=== PATIENT | female | born 1940 | race Caucasian/White ===

== ENCOUNTER 2017-06-24 17:40 | Emergency (ER) | payer MEDICARE, BC ==
--- NOTE | 2017-06-24 18:10 | ED Physician Documentation ---
Allergy Symptoms - HISTORIAN Historian: patient, child - HPI Stated Complaint: rash and weight gain Chief Complaint: Allergic Reaction Onset: days ago (4) Duration: continues in ED Associated Symptoms: skin rash, facial, itching, trunk, extremities, diffuse hives Swelling: feet Shortness of Breath: mild (she has COPD) Trouble Swallowing/ Speaking: none Identified Cause: yes When Did Symptoms Start: 06/20/17 Context: Food Exposure: none Where: home Context: Medication Exposure: antibiotic - ROS EYES/ENT: none CVS/RESP: shortness of breath. denies: cough GI/: denies: abdominal pain, vomiting CONST: recent illness (she was treated in ER for COPD ) MS/SKIN/LYMPH: other (rash) NEURO/PSYCH: none - PAST HX Prior Allergic Reaction: none Medical History: other (COPD ) Immunizations: referred to PCP - SOCIAL HX Smoking History: quit greater than 1 year Alcohol Use: none Drug Use: none - FAMILY HX Family History: No - REVIEWED ASSESSMENTS Nursing Assessment Reviewed: Yes Vitals Reviewed: Yes <Verna Xavier - Last Filed: 06/24/17 18:47> - VITAL SIGNS Vital Signs: Vital Signs Temp Pulse Resp BP Pulse Ox 98.8 F 92 H 20 162/85 94 06/24/17 17:40 06/24/17 17:40 06/24/17 17:40 06/24/17 17:40 06/24/17 17:40 <Boni Graham - Last Filed: 06/24/17 20:30> - PAST HX Allergies/Adverse Reactions: Allergies Allergy/AdvReac Type Severity Reaction Status Date / Time No Known Allergies Allergy Verified 06/24/17 18:07 Home Medications: Ambulatory Orders Medication Instructions Recorded Unobtainable [Unobtainable] 06/24/17 ED Results Lab/Radiology - Radiology Radiology Impressions: Examination: Portable chest History: Chest discomfort Comparison exam: None available for direct review Findings: Single view of the chest demonstrates a prominent cardiac silhouette. Tortuosity of the thoracic aorta with vascular calcifications involving the aortic arch. Lung aldridge without focal infiltrate. No effusion. Osseous structures are appropriate for age. Impression: Cardiomegaly. No acute pulmonary process. Electronically signed on Jun 24, 2017 6:32:23 PM CDT by: Cesar Gimenez <Verna Xavier - Last Filed: 06/24/17 18:47> - Lab Results Lab Results: Lab Results 06/24/17 06/24/17 06/24/17 19:05 19:05 19:05 WBC 8.10 K/ul K/ul (4.00-12.00) RBC 4.58 M/ul M/ul (3.90-5.20) Hgb 13.6 g/dL g/dL (12.0-16.0) Hct 41.7 % % (34.5-46.5) MCV 91.0 fl fl (80.0-100.0) MCH 29.8 pg pg (28.0-34.0) MCHC 32.7 g/dL g/dL (30.0-36.0) RDW 14.2 % % (11.3-14.3) Plt Count 135 K/mm3 K/mm3 (130-400) Neut % (Auto) 43.6 % % (39.0-79.0) Lymph % (Auto) 25.6 % % (16.0-50.0) [place] % (Auto) 4.3 % % (0.0-11.0) Eos % (Auto) 24.3 % H % (0.0-6.8) Baso % (Auto) 0.8 (0.0-1.5) Neut # (Auto) 3.5 # k/uL # k/uL (1.4-7.7) Lymph # (Auto) 2.1 # k/uL # k/uL (0.6-4.0) [place] # (Auto) 0.4 # k/uL # k/uL (0.0-0.9) Eos # (Auto) 2.0 # k/uL H # k/uL (0.0-0.6) Baso # (Auto) 0.1 # k/uL # k/uL (0.0-0.5) Reactive Lymphs % 1.4 % % (0.0-5.0) Reactive Lymphs # 0.1 # k/uL # k/uL (0.0-0.8) Sodium 142 mmol/L mmol/L (136-145) Potassium 3.6 mmol/L mmol/L (3.5-5.0) Chloride 100 mmol/L mmol/L (98-110) Carbon Dioxide 34 mmol/L H mmol/L (20-32) BUN 7 mg/dL L mg/dL (10-26) Creatinine 0.6 mg/dL mg/dL (0.4-1.5) Estimated Creat Clear 153 Est GFR ( Amer) > 60 (60 - ) Est GFR (Non-Af Amer) > 60 (60 - ) Glucose 131 mg/dL H mg/dL (70-99) Calcium 9.8 mg/dL mg/dL (8.5-10.5) Total Bilirubin 0.5 mg/dL mg/dL (0.2-1.2) AST 53 U/L H U/L (0-41) ALT 53 U/L H U/L (0-45) Alkaline Phosphatase 113 U/L U/L (46-116) NT-Pro-B Natriuret Pep 40.4 pg/mL pg/mL (15.0-450.0) Total Protein 7.3 g/dL g/dL (6.0-8.5) Albumin 4.5 g/dL g/dL (3.0-5.5) - Orders Orders: ED Orders Category Date Time Status Place IV Lock 1T Care 06/24/17 18:14 Active CHEST 2 VIEW [CHEST P.A.&LAT 2 VIEWS] [RAD] Stat Exams 06/24/17 Completed BNP [NT-proBNP] Stat Lab 06/24/17 Ordered BNP [NT-proBNP] Stat Lab 06/24/17 19:05 Completed CBC/PLATELET/DIFF Routine Lab 06/24/17 19:05 Completed CMP [CMP] Routine Lab 06/24/17 19:05 Completed UA W/MICRO IF INDICATED Routine Lab 06/24/17 19:19 Ordered methylPREDNISolone SOD SUCC [Solu-MEDROL] Med 06/24/17 20:01 Discontinued 125 mg IM NOW ONE <Boni Graham - Last Filed: 06/24/17 20:30> Allergy Symptons Exam - EXAM General Appearance: no acute distress, alert Skin: skin rash, erythematous, patchy, neck, trunk, arms, legs Extremities: non-tender, edema, legs, pedal Neck: nml inspection Respiratory: breath sounds nml, wheezes CVS: reg rate & rhythm, heart sounds normal, equal pulses, no murmur Abdomen: non-tender, no organomegaly Neuro: oriented X3, CN's nml as tested <Verna Xavier - Last Filed: 06/24/17 18:47> Discharge <Verna Xavier - Last Filed: 06/24/17 18:47> Comments: to see dermatologists very soon Decision to Admit: NO Decision Time: 20:29 <Boni Graham - Last Filed: 06/24/17 20:30> Clincal Impression: Medication adverse effect Qualifiers: Encounter type: initial encounter Qualified Code(s): T88.7XXA - Unspecified adverse effect of drug or medicament, initial encounter Referrals: Primary Doctor,No [Primary Care Provider] - 2 Days Condition: Stable Disposition: 01 HOME, SELF-CARE
--- NOTE | 2017-06-24 18:36 | Diagnostic Imaging Report ---
THERESA BAZAN~ [facility] [address] [facility].[address] [address] ~ ~ ~ ~ Report Submission Date: Jun 24, 2017 6:32:23 PM CDT Patient ~ Study Name: NAOMI MARINA ~ Date: Jun 24, 2017 6:16:30 PM CDT ~ Modality Type: CR Gender: F ~ Description: CHEST : 42 ~ Institution: [facility] Physician: THERESA BAZAN ~ ~ ~ ~ Examination: Portable chest History: Chest discomfort Comparison exam: None available for direct review Findings: Single view of the chest demonstrates a prominent cardiac silhouette. Tortuosity of the thoracic aorta with vascular calcifications involving the aortic arch. Lung aldridge without focal infiltrate. No effusion. Osseous structures are appropriate for age. Impression: Cardiomegaly. No acute pulmonary process. ~ Electronically signed on Jun 24, 2017 6:32:23 PM CDT by: Cesar CHARLES
[2017-06-24 19:10] LABS: BASOPHILS % 0.8 (0.0-1.5); EOSINOPHILS % 24.3 % (0.0-6.8); MEAN CORPUSCULAR HEMOGLOBIN 29.8 pg (28.0-34.0); MONOCYTES % 4.3 % (0.0-11.0); NEUTROPHILS # 3.5 # k/uL (1.4-7.7)
[2017-06-24 19:27] LABS: eGFR (African) > 60; eGFR (Non-African) > 60
[2017-06-24] MEDS ORDERED: methylPREDNISolone SOD SUCC 125 MG/2 ML VIAL IM ONE (20:01)
[2017-06-24 21:37] VITALS: BP 158/72
== END 2017-06-24 20:50 | disposition home or self-care (01) ==
LOC: ED 17:40
DX: T88.7XXA Unspecified adverse effect of drug or medicament, initial encounter (principal); X58.XXXA Exposure to other specified factors, initial encounter; Y93.9 Activity, unspecified; Y99.9 Unspecified external cause status
CPT/HCPCS: 71020; 80053; 83880; 85025; 96372; 99283; S1016

== ENCOUNTER 2018-03-09 18:05 | Emergency (ER) | payer MEDICARE, BC ==
[2018-03-09] MEDS ORDERED: IPRATROPIUM/ALBUTEROL SULFATE 3 ML AMPUL.NEB NEB ONE (18:23)
[2018-03-09] MEDS ORDERED: BUDESONIDE 0.5MG/2ML AMPUL.NEB NEB ONE (18:23)
[2018-03-09] MEDS ORDERED: methylPREDNISolone SOD SUCC 40 MG/ML VIAL IVP ONE (18:23)
--- NOTE | 2018-03-09 18:30 | ED Physician Documentation ---
General Adult - HISTORIAN Historian: patient, child (daughter) - HPI Stated Complaint: SOB Chief Complaint: General Adult Additional Information: Increasing dyspnea and cough for 4 days. No fevers or sweats. Says she has COPD and is having an exacerbation. Last episode 7 months ago. Last Duoneb at home about 3 hours ago. Uses 2.5 L/min oxygen for sleep. - ROS CONST: denies: fever, sweating - PAST HX Past History: COPD, other (NIDDM) Surgeries/Procedures: other (AAA per femoral artery) Allergies/Adverse Reactions: Allergies Allergy/AdvReac Type Severity Reaction Status Date / Time cephalexin Allergy Rash Verified 03/09/18 18:22 Home Medications: Ambulatory Orders Medication Instructions Recorded Amitriptyline HCl 25 mg PO HS 03/09/18 Aspirin [Corrie] 81 mg PO DAILY 03/09/18 Azithromycin [Zithromax] 250 mg PO DAILY #6 tablet 03/09/18 Gabapentin [Neurontin] 300 mg PO TID 03/09/18 Guaifenesin [Mucinex] 600 mg PO BID 03/09/18 Levothyroxine Sodium [Synthroid] 100 mcg PO DAILY 03/09/18 Loratadine [Claritin] 10 mg PO D 03/09/18 Meloxicam [Meloxicam] 15 mg PO DAILY 03/09/18 Metformin HCl [Glucophage] [place] [id number] 03/09/18 Tramadol HCl [Ultram] 100 mg PO BID 03/09/18 amLODIPine BESYLATE [Norvasc] 5 mg PO DAILY 03/09/18 predniSONE [Deltasone] 40 mg PO QD #14 tablet 03/09/18 - SOCIAL HX Smoking History: quit greater than 1 year, cigarettes (for 50 years) - FAMILY HX Family History: No - VITAL SIGNS Vital Signs: Vital Signs Temp Pulse Resp BP Pulse Ox 158/72 06/24/17 21:28 - REVIEWED ASSESSMENTS Nursing Assessment Reviewed: Yes Vitals Reviewed: Yes Progress - Progress Progress: Patient Study Name: NAOMI MARINA Date: Mar 09, 2018 6:41:05 PM CDT Modality Type: DX Gender: F Description: CHEST : 42 Institution: [facility] Physician: JOSE R MOON - ER 2 views of the chest History: SHORTNESS OF AIR/COUGH X 2 DAYS HX COPD Comparison: June 24, 2017 Mild cardiomegaly. Aortic calcifications again noted. Again noted are basilar predominant chronic interstitial lung changes. Minimal basilar atelectasis. No focal consolidation, pleural effusion or pneumothorax. Multilevel thoracic spine degenerative changes are present Impression: 1. Mild cardiomegaly. Mild pulmonary vascular congestion. 2. Emphysema and stable basilar predominant chronic interstitial lung changes. Electronically signed on Mar 09, 2018 7:14:29 PM CDT by: Kristin Carter Improved after nebs. CRX unchanged. Pulse ox mid 90's on RA. ED Results Lab/Radiology - Orders Orders: ED Orders Category Date Time Status Continuous EKG monitoring Q1H Care 03/09/18 18:[address] IV Lock 1T Care 03/09/18 18:22 Ordered CHEST 2VIEW [RAD] Stat Exams 03/09/18 Ordered BLOOD CULTURE Stat Lab 03/09/18 Ordered CBC/PLATELET/DIFF Routine Lab 03/09/18 Ordered CMP Routine Lab 03/09/18 Ordered TROPONIN T (Ulises) Stat Lab 03/09/18 Ordered URINALYSIS Routine Lab 03/09/18 Ordered Budesonide [Pulmicort] Med 03/09/18 18:23 Once 0.5 mg NEB BID ONE Ipratropium/Albuterol Sulfate [Duoneb] Med 03/09/18 18:23 Once 3 ml NEB NOW ONE methylPREDNISolone SOD SUCC [Solu-MEDROL] Med 03/09/18 18:23 Once 80 mg IVP NOW ONE EKG WITH COMPARISON Stat Ther 03/09/18 Ordered General Adult Physical Exam - PHYSICAL EXAM GENERAL APPEARANCE: obese (84-86% sat on room air.) EENT: eye inspection normal, pharynx normal NECK: normal inspection, supple RESPIRATORY: wheezes (decreased breath sounds) CVS: reg rate & rhythm, heart sounds normal ABDOMEN: soft, normal bowel sounds BACK: normal inspection, other (no vertebral tenderness) EXTREMITIES: no evidence of injury, no edema, other (skin intact on feet) NEURO: CN's nml as tested, motor nml, sensation nml, cognition normal Discharge Clincal Impression: COPD exacerbation Prescriptions: Azithromycin [Zithromax] 250 mg PO DAILY #6 tablet predniSONE [Deltasone] 40 mg PO QD #14 tablet Referrals: Tennille Calderon PRN [Primary Care Provider] - 2 Days Condition: Fair Disposition: 01 HOME, SELF-CARE Decision to Admit: NO Decision Time: 19:40
[2018-03-09 18:33] LABS: BASOPHILS % 0.4 (0.0-1.5); MEAN CORPUSCULAR HEMOGLOBIN 29.8 pg (28.0-34.0); MONOCYTES % 6.7 % (0.0-11.0)
[2018-03-09 19:02] LABS: eGFR (African) > 60; eGFR (Non-African) > 60
[2018-03-09] MEDS ORDERED: AZITHROMYCIN 250 MG TABLET PO ONE ×2 (19:57)
[2018-03-09 20:48] VITALS: BP 122/74
--- NOTE | 2018-03-10 06:26 | Diagnostic Imaging Report ---
JOSE R MOON [facility] [address] [facility] [address] [address] Report Submission Date: Mar 09, 2018 7:14:29 PM CDT Patient Study Name: NAOMI MARINA Date: Mar 09, 2018 6:41:05 PM CDT Modality Type: DX Gender: F Description: CHEST : 42 Institution: [facility] Physician: JOSE R MOON 2 views of the chest History: SHORTNESS OF AIR/COUGH X 2 DAYS HX COPD Comparison: June 24, 2017 Mild cardiomegaly. Aortic calcifications again noted. Again noted are basilar predominant chronic interstitial lung changes. Minimal basilar atelectasis. No focal consolidation, pleural effusion or pneumothorax. Multilevel thoracic spine degenerative changes are present Impression: 1. Mild cardiomegaly. Mild pulmonary vascular congestion. 2. Emphysema and stable basilar predominant chronic interstitial lung changes. Electronically signed on Mar 09, 2018 7:14:29 PM CDT by: Kristin CHARLES
== END 2018-03-09 20:13 | disposition home or self-care (01) ==
LOC: ED 18:05
DX: J44.1 Chronic obstructive pulmonary disease with (acute) exacerbation (principal)
CPT/HCPCS: 71046; 80053; 84484; 85025; J1030; J7626; 87040; 94640; 96374; 99285; J2920; S1016

== ENCOUNTER 2018-10-04 00:33 | Emergency (ER) | payer MEDICARE, BC ==
[2018-10-04] MEDS ORDERED: methylPREDNISolone ACETATE 80 MG/ML VIAL IM ONE (01:26)
[2018-10-04] MEDS ORDERED: DOXYCYCLINE 100 MG CAPSULE PO ONE (01:29)
--- NOTE | 2018-10-04 01:48 | ED Physician Documentation ---
Upper Respiratory Symptoms - HISTORIAN Historian: patient, child - HPI Stated Complaint: cough and sore throat Chief Complaint: Cough/ Upper Respiratory Additional Information: acute exab of ch copd std w/ cough sob now cough prod yellow mucoid fever Onset: days ago (2-3) Duration: constant, other (int exab cough) Context: denies: recent foreign travel Severity: moderate Associated Symptoms: fever, productive cough, shortness of breath, hurts to breathe Worsened by Deep Breath: Yes - ROS CONST/EYES: weakness. denies: eye redness, eye itching CVS/RESP: shortness of breath. denies: palpitations GI/: nausea - PAST HX Lung Disease: asthma, COPD, bronchitis PE Risk Factors: hypertension, other (dm neuropathy hypo thryoid ) Immunizations: UTD Allergies/Adverse Reactions: Allergies Allergy/AdvReac Type Severity Reaction Status Date / Time cephalexin Allergy Rash Verified 10/04/18 00:48 Home Medications: Ambulatory Orders Medication Instructions Recorded Amitriptyline HCl 25 mg PO HS 03/09/18 Aspirin [Corrie] 81 mg PO DAILY 03/09/18 Gabapentin [Neurontin] 300 mg PO TID 03/09/18 Guaifenesin [Mucinex] 600 mg PO BID 03/09/18 Levothyroxine Sodium [Synthroid] 100 mcg PO DAILY 03/09/18 Loratadine [Claritin] 10 mg PO D 03/09/18 Meloxicam 15 mg PO DAILY 03/09/18 Metformin HCl [Glucophage] 500 mg PO BID 03/09/18 Tramadol HCl [Ultram] 50 mg PO TID 03/09/18 amLODIPine BESYLATE [Norvasc] 5 mg PO DAILY 03/09/18 Doxycycline Hyclate 100 mg PO BID #20 tablet 10/04/18 predniSONE [Deltasone] 20 mg PO BID #20 tablet 10/04/18 - SOCIAL HX Smoking History: quit greater than 1 year Alcohol Use: none Drug Use: none - FAMILY HX Family History: no significant history - VITAL SIGNS Vital Signs: Vital Signs Temp Pulse Resp BP Pulse Ox 99 F 118 H 22 178/94 93 10/04/18 00:33 10/04/18 00:33 10/04/18 00:33 10/04/18 00:33 10/04/18 00:33 - REVIEWED ASSESSMENTS Nursing Assessment Reviewed: Yes Vitals Reviewed: Yes ED Results Lab/Radiology - Orders Orders: ED Orders Category Date Time Status INFLUENZA A&B Stat Lab 10/04/18 01:31 Ordered Rapid Strep [GRP A STREP SCREEN] Stat Lab 10/04/18 Ordered Doxycycline Monohydrate [Vibramycin] Med 10/04/18 01:29 Discontinued 100 mg PO NOW ONE methylPREDNISolone ACETATE [Depo-Medrol] Med 10/04/18 01:26 Discontinued 80 mg IM NOW ONE Upper Respiratory Symptoms - EXAM General Appearance: mild distress, moderate distress EENT: eyes nml inspection, nml ENT inspection, nose nml, pharyngeal erythema. No: TM dullness (R), TM dullness (L), pharynx nml Neck: normal inspection Respiratory: no pain on inspiration, speaks full sentences, respiratory distress, prolonged expirations, decreased air movement, wheezes, rales, rhonc hi. No: breath sounds nml, retractions, splinting, accessory muscle use Abdomen: non-tender, no distention Skin: color nml, no rash, warm,dry. No: cyanosis, diaphoresis, pallor Extremities: non-tender, normal range of motion, no evidence of injury Neuro/Psych: oriented x3, neuro intact, mood/affect nml Discharge Clincal Impression: COPD with acute exacerbation Prescriptions: Doxycycline Hyclate 100 mg PO BID #20 tablet predniSONE [Deltasone] 20 mg PO BID #20 tablet Referrals: Tennilel Calderon, PRN [Primary Care Provider] - 2 Days Additional Instructions: cont home neb and other meds Comments: f/u soon w/pcp Condition: Fair Disposition: 01 HOME, SELF-CARE Decision to Admit: NO Decision Time: 01:55
[2018-10-04 01:57] VITALS: BP 171/89
== END 2018-10-04 01:51 | disposition home or self-care (01) ==
LOC: ED 00:33
DX: J44.1 Chronic obstructive pulmonary disease with (acute) exacerbation (principal); Z72.0 Tobacco use
CPT/HCPCS: 87070; 87400; 87880; 96372; 99282; 99284; J1040